=== PATIENT | female | born 1990 | race African-American/Black ===

== ENCOUNTER 2018-07-12 09:22 | Emergency (ER) | payer OTHER ==
[~2018-07-12] VITALS: Ht 170.2 cm; Wt 108.5 kg
--- NOTE | 2018-07-12 09:53 | NUR ---
PT TO ROOM WITH A STEADY GAIT. PT IN GOWN AT THIS TIME. PT DECLINES WARM BLANKET. MD IN ROOM TO EVAL. 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 AWAITING FURTHER ORDERS.
[2018-07-12 11:16] LABS: BASOPHILS # (AUTO) 0.02 x10^3/uL (0-0.1); BASOPHILS % (AUTO) 0 % (0-1); EOSINOPHILS # (AUTO) 0.02 x10^3/uL (0-0.4); EOSINOPHILS % (AUTO) 0 % (1-7); LYMPHOCYTES # (AUTO) 1.19 x10^3/uL (1-3.4); LYMPHOCYTES % (AUTO) 25 % (22-44); MD NO; MEAN CORPUSCULAR HEMOGLOBIN 29.7 pg (27.0-34.8); MEAN CORPUSCULAR VOLUME 90.2 fL (80-100); MEAN PLATELET VOLUME 8.2 fL (7.4-10.4); MONOCYTES # (AUTO) 0.56 x10^3/uL (0.2-0.8); MONOCYTES % (AUTO) 12 % (2-9); NEUTROPHILS # (AUTO) 2.92 x10^3/uL (1.8-6.8); NEUTROPHILS % (AUTO) 62 % (42-75); PLATELET COUNT 289 x10^3/uL (130-400); RED BLOOD COUNT 4.74 x10^6/uL (3.82-5.3)
[2018-07-12 11:22] LABS: ALBUMIN 3.9 g/dL (3.4-5.0); ANION GAP 5 mmol/L (5-15); CALCIUM 8.8 mg/dL (8.5-10.1); CHLORIDE 107 mmol/L (98-107)
--- NOTE | 2018-07-12 11:34 | NUR ---
PT IN ROOM AT THIS TIME. NO WANTS OR NEEDS EXPRESSED. WARM BLANKET PROVIDED.
[2018-07-12 11:40] LABS: CREATININE 0.77 mg/dL (0.55-1.02)
[2018-07-12 13:17] VITALS: BP 122/72
[2018-07-12 13:31] VITALS: BP 124/69
== END 2018-07-12 13:47 | disposition home or self-care (01) ==
LOC: ED 13:41
DX: O20.0 Threatened abortion (principal); Z3A.01 Less than 8 weeks gestation of pregnancy
CPT/HCPCS: 36415; 76801; 80048; 82040; 84702; 85025; 86850; 86900; 96372; 99284; J2790

== ENCOUNTER 2018-07-19 12:34 | Emergency (ER) | payer OTHER ==
[~2018-07-19] VITALS: Ht 170.2 cm; Wt 108.8 kg
--- NOTE | 2018-07-19 12:39 | NUR ---
THIS IS A 28 YO FEMALE WHO PRESENTS TO THE ER C/O VAGINAL BLEEDING AND PASSING CLOTS X 20 MINUTES, SOAKING APPROX 3 PADS. PT ORIGINALLY WENT TO FOR SEVERE BACK PAIN AND DURING IMAGING SHE BEGAN TO CRAMP AND BLEED. PT APPROX 7 WEEKS . G 3 P 1 A 1. LMP 05/31/18. PT AO X 4. SKIN WARM AND DRY. RESP EVEN AND UNLABORED. PT HAS OCCAISIONALY GRIMACING AND RATES CRAMPING AT 8/10.
[2018-07-19] MEDS ORDERED: OXYcodone/APAP 5/325MG TABLET ONE (13:16)
[2018-07-19 13:23] LABS: BASOPHILS # (AUTO) 0.01 x10^3/uL (0-0.1); BASOPHILS % (AUTO) 0 % (0-1); EOSINOPHILS # (AUTO) 0.02 x10^3/uL (0-0.4); EOSINOPHILS % (AUTO) 0 % (1-7); LYMPHOCYTES # (AUTO) 1.74 x10^3/uL (1-3.4); LYMPHOCYTES % (AUTO) 26 % (22-44); MD NO; MEAN CORPUSCULAR HEMOGLOBIN 30.7 pg (27.0-34.8); MEAN CORPUSCULAR HGB CONC 33.1 g/dL (32.4-35.8); MEAN CORPUSCULAR VOLUME 92.8 fL (80-100); MONOCYTES # (AUTO) 0.87 x10^3/uL (0.2-0.8); MONOCYTES % (AUTO) 13 % (2-9); NEUTROPHILS % (AUTO) 60 % (42-75); PLATELET COUNT 263 x10^3/uL (130-400); RED BLOOD COUNT 4.56 x10^6/uL (3.82-5.3)
--- NOTE | 2018-07-19 13:27 | NUR ---
PT OFFERED PAIN MEDICATION. PT CURRENTLY REFUSES PAIN MEDICATION. PT PROVIDED WITH PAD AND PLACED ON GYNIE BED. PT CONT TO HAVE ABD CRAMPING. PT AO X 4. SKIN WARM AND DRY. RESP EVEN AND UNLABORED. PT ON CONT BP AND O2 MONITORS. CALL LIGHT WITHIN REACH. WILL CONT TO MONITOR PT.
[2018-07-19 13:28] LABS: ALBUMIN 3.7 g/dL (3.4-5.0); ANION GAP 6 mmol/L (5-15); CHLORIDE 106 mmol/L (98-107); CREATININE 0.78 mg/dL (0.55-1.02)
[2018-07-19] MEDS ORDERED: OXYcodone/APAP 5/325MG TABLET PO ONE (13:30)
--- NOTE | 2018-07-19 13:41 | NUR ---
PT TO IMAGING VIA [employer] AT THIS TIME.
--- NOTE | 2018-07-19 14:30 | NUR ---
PT CURRENTLY SITTING ON [employer], TALKING ON CELL PHONE. PT REPORTS BLEEDING HAS SLOWED DOWN AND CRAMPING IS DECREASED. PT CONT TO REFUSE PAIN MEDICATION. PT AWARE WE ARE WAITING FOR LAB/IMAGING RESULTS. PT DENIES NEEDS AT THIS TIME. CALL LIGHT WITHIN REACH. WILL CONT TO MONITOR PT.
--- NOTE | 2018-07-19 16:17 | NUR ---
FIRST CONTACT. ISSA MCMILLAN IS DISCHARGING THE PT. FOR THE PRIMARY CARE ISSA YIN. PT. WAS GIVEN DISCHARGE INSTRUCTIONS WITH UNDERSTANDING VERBALIZED ALONG WITH WILLINGNESS TO COMPLY. PT. WAS AMBULATORY WITH A STEADY GAIT TO THE DISCHARGE DESK. VSS.
[2018-07-19 16:18] VITALS: BP 113/89
== END 2018-07-19 16:20 | disposition home or self-care (01) ==
LOC: ED 14:10
DX: O36.4XX0 Maternal care for intrauterine death, not applicable or unspecified (principal); Z3A.01 Less than 8 weeks gestation of pregnancy
CPT/HCPCS: 36415; 76801; 80048; 82040; 84702; 85025; 99284

== ENCOUNTER 2018-11-13 14:22 | Emergency (ER) | payer OTHER ==
[~2018-11-13] VITALS: Ht 170.2 cm; Wt 107.8 kg
[2018-11-13 14:50] LABS: BASOPHILS # (AUTO) 0.02 x10^3/uL (0-0.1); BASOPHILS % (AUTO) 0 % (0-1); EOSINOPHILS # (AUTO) 0.01 x10^3/uL (0-0.4); EOSINOPHILS % (AUTO) 0 % (1-7); LYMPHOCYTES # (AUTO) 1.68 x10^3/uL (1-3.4); LYMPHOCYTES % (AUTO) 21 % (22-44); MD NO; MEAN CORPUSCULAR HGB CONC 33.3 g/dL (32.4-35.8); MEAN CORPUSCULAR VOLUME 92.9 fL (80-100); MEAN PLATELET VOLUME 7.7 fL (7.4-10.4); MONOCYTES # (AUTO) 0.73 x10^3/uL (0.2-0.8); MONOCYTES % (AUTO) 9 % (2-9); NEUTROPHILS # (AUTO) 5.64 x10^3/uL (1.8-6.8); NEUTROPHILS % (AUTO) 70 % (42-75); PLATELET COUNT 305 x10^3/uL (130-400); RED BLOOD COUNT 4.63 x10^6/uL (3.82-5.3); RED CELL DISTRIBUTION WIDTH 12.5 % (9.6-15.2)
[2018-11-13 15:02] LABS: ALBUMIN 3.9 g/dL (3.4-5.0); ANION GAP 8 mmol/L (5-15); CALCIUM 9.3 mg/dL (8.5-10.1); CHLORIDE 105 mmol/L (98-107)
[2018-11-13 15:20] LABS: CREATININE 0.82 mg/dL (0.55-1.02)
--- NOTE | 2018-11-13 15:45 | NUR ---
blood bank called to specify that they have 1 dose of rhogam ready for patient (appropriate as patient was only 8 weeks )
[2018-11-13 16:50] VITALS: BP 121/80
--- NOTE | 2018-11-13 17:00 | NUR ---
BLOOD CONSENT OBTAINED THEN RHOGAM ADMINISTERED PER TRANSFUSION ORDER WITH LUZ ELENA PARSONS WITNESS
[2018-11-13 17:05] VITALS: BP 123/71
[2018-12-05] MEDS ORDERED: DOXY25TA18 PO (15:32)
== END 2018-11-13 17:10 | disposition home or self-care (01) ==
LOC: ED 16:28
DX: O34.81 Maternal care for other abnormalities of pelvic organs, first trimester (principal); N83.201 Unspecified ovarian cyst, right side; O20.9 Hemorrhage in early pregnancy, unspecified; M54.5 Low back pain; R11.2 Nausea with vomiting, unspecified; Z3A.01 Less than 8 weeks gestation of pregnancy
CPT/HCPCS: 36415; 76801; 80048; 82040; 84702; 85025; 86850; 86900; 96372; 99284; J2790